=== PATIENT | male | born 1985 ===

== ENCOUNTER 2018-03-31 10:39 | Emergency (ER) | payer SELFPAY ==
[2018-03-31 10:43] VITALS: RESP 16; TEMP 98.8; BMI 26.9
--- NOTE | 2018-03-31 11:42 | ED PDOC ---
HPI: Skin/Bite Injury Time Seen by Provider: 03/31/18 10:49 Chief Complaint (Nursing): Abnormal Skin Integrity Chief Complaint (Provider): Rash History Per: Patient Additional Complaint(s): Pt is a 32 yo male, no PMH, states he woke up yesterday a.m. with itchy rash on left arm, woke up w/ same kind of rash on lt upper arm and rt lower abd 2 days ago. P{t has been applying aloe with mild relief of itching. Past Medical History Reviewed: Nursing Documentation, Vital Signs Vital Signs: Last Vital Signs Temp 98.8 F 03/31/18 10:42 Pulse 97 H 03/31/18 10:42 Resp 16 03/31/18 10:42 BP 114/67 03/31/18 10:42 Pulse Ox 97 03/31/18 10:42 - Medical History PMH: No Chronic Diseases - Surgical History Surgical History: No Surg Hx - Family History Family History: States: No Known Family Hx - Living Arrangements Living Arrangements: With Family - Social History Current smoker - smoking cessation education provided: No Alcohol: Social Drugs: Denies - Home Medications Home Medications: Ambulatory Orders Medication Instructions Recorded DiphenhydrAMINE [Benadryl] 50 mg PO Q4 PRN #30 cap 03/31/18 Hydrocortisone 1% Cream [Cortizone 1 dap TOP BID #1 tube 03/31/18 1% Cream] - Allergies Allergies/Adverse Reactions: Allergies Allergy/AdvReac Type Severity Reaction Status Date / Time No Known Allergies Allergy Verified 03/31/18 10:59 Review of Systems ROS Statement: Except As Marked, All Systems Reviewed And Found Negative Skin: Positive for: Rash Physical Exam - Reviewed Nursing Documentation Reviewed: Yes Vital Signs Reviewed: Yes - Physical Exam Appears: Positive for: Well, Non-toxic, No Acute Distress Head Exam: Positive for: ATRAUMATIC, NORMAL INSPECTION, NORMOCEPHALIC Skin: Positive for: Normal Color, Warm, Rash (erythematous papules scattered in a non linear array to left upper arm) Eye Exam: Positive for: EOMI, Normal appearance, PERRL Cardiovascular/Chest: Positive for: Regular Rate, Rhythm Respiratory: Positive for: CNT, Normal Breath Sounds Gastrointestinal/Abdominal: Positive for: Normal Exam, Soft Back: Positive for: Normal Inspection Extremity: Positive for: Normal ROM Neurologic/Psych: Positive for: Alert, Oriented - ECG O2 Sat by Pulse Oximetry: 97 Disposition - Clinical Impression Clinical Impression: Insect bite - Patient ED Disposition Is Patient to be Admitted: No - Disposition Disposition: Routine/Home Disposition Time: 11:43 Condition: STABLE Prescriptions: DiphenhydrAMINE [Benadryl] 50 mg PO Q4 PRN #30 cap PRN Reason: Rash Hydrocortisone 1% Cream [Cortizone 1% Cream] 1 dap TOP BID #1 tube Instructions: Insect Bites and Stings (DC) Forms: [employer] (French)
[2018-03-31 12:29] VITALS: BP 112/70; PULSE 90; O2SAT 98
== END 2018-03-31 12:30 | disposition home or self-care (01) ==
LOC: H.ER 10:39
DX: S40.862A Insect bite (nonvenomous) of left upper arm, initial encounter (principal); W57.XXXA Bitten or stung by nonvenomous insect and other nonvenomous arthropods, initial encounter